=== PATIENT | female | born 1990 | race Hispanic/Latino ===

== ENCOUNTER → 2017-08-24 | Day surgery (SDC) | payer OTHER ==
[~2017-08-24] MED LIST: BELLADONNA/OPIUM 60 MG SUPP PR ONE; CEFTRIAXONE SOD 1 GM VIAL ONE; DEXAMETHASONE SOD PHOS INJ 4 MG/ML VIAL ONE; IOPAMIDOL 610MG/1ML 300 MG/ML VIAL IV ONE; KETOROLAC TROMETHAMINE 30 MG/ML VIAL ONE; LABETALOL HCL100 MG PO; LIDOCAINE HCL 2% LOCAL INJ 5 ML SDV VIAL INJ ONE; MIDAZOLAM HCL 2 MG/2 ML VIAL ONE; MORPHINE SULFATE INJ 10 MG/ML ONE; ONDANSETRON HCL INJ 2 MG/ML VIAL ONE; PROPOFOL IV EMULSION 10 MG/ML 20 ML VIAL ONE; SEVOFLURANE INHAL SOLN 250 ML PEN BTL ONE
--- NOTE | 2017-08-24 09:42 | Diagnostic Imaging Report ---
EXAM: ABDOMEN-1VIEW (KUB) DATE: 08/24/2017 7:55 AM INDICATION: Pre-op lithotripsy COMPARISON: 07/04/2017 CT FINDINGS: Right ureteral stent present. Significant colonic stool. 12 mm calcification overlies inferior right kidney. Left kidney obscured by stool. Irregular 15 mm calculus corresponds with bladder calculus on previous CT. No acute osseous findings. IMPRESSION: As above. Signed by: Dr. Catalino Wiseman MD on 08/24/2017 9:38 AM
--- NOTE | 2017-10-07 08:18 | Operative Report ---
DATE OF PROCEDURE: August 24, 2017 PREOPERATIVE DIAGNOSES 1. Right nephrolithiasis. 2. Foreign body (right indwelling ureteral stent). POSTOPERATIVE DIAGNOSES 1. Right nephrolithiasis. 2. Foreign body (right indwelling ureteral stent). 3. Mild cystocele. PROCEDURES PERFORMED: Note these are all staged procedures as part of multistage, multistep process of managing the patient's urolithiasis. 1. Cystourethroscopy with complicated removal of right indwelling ureteral stent (separate procedure performed with separate scope for the diagnosis of stent). 2. Right ureteropyeloscopy (separate procedure performed to evaluate for any residual urolithiasis and manage them as needed). 3. Interpretation of retrograde ureteropyelography. 4. Interpretation of radiological services for supervision and interpretation of ureteroscopy. 5. Supervision of fluoroscopy. No radiologist present. 6. Pelvic examination under anesthesia. ANESTHESIA: General. COMPLICATIONS: None. CLINICAL SUMMARY: Patrizia Westbrook is a 26-year-old woman who had previous urolithiasis. She also had a , and this delayed management of her stones. Once the patient delivered her baby, we proceeded with stone management. The patient was brought to the operating room today in hopes of rendering her stent-free and stone-free. She is aware of the risks of bleeding, infection, injury to adjacent structures, need for additional procedures and elected to proceed. The patient was given specific instructions in how to handle the interaction of medications with breast milk. OPERATIVE PROCEDURE IN DETAIL: Informed consent was verified. Patrizia Westbrook was properly identified, taken to the operating room, and placed on the cystoscopy table in supine position. Anesthesia was uneventfully begun. The patient was then carefully and gently repositioned in the dorsal lithotomy position with all pressure points well padded. Her genitalia were prepared and draped in the usual sterile fashion. The 22.5-[place] cystourethroscope sheath with obturator in place was atraumatically inserted in the patient's urethra, and the bladder was drained. Panendoscopy of the urinary bladder revealed no suspicious mucosal lesions, no tumors, no stones and no diverticula. A stent was noted to be emerging from the right ureteral orifice. A guidewire was then placed alongside the stent and guided to the level of the patient's kidney. The stent was then grasped, completely removed and discarded. Semirigid ureteroscope was then placed alongside the guidewire and guided into the right ureter. Contrast was injected. No stones were identified. There were no tumors, and no strictures were identified. The flexible ureteroscope was then brought up over the guidewire and guided to the level of the patient's kidney. Careful panendoscopy revealed Brent plaques but no tumors, no stones and no diverticula. No suspicious mucosal lesions were identified. We carefully examined the ureter as we exited. It exhibited no tumors, no stones, no diverticula, no suspicious lesions and no scars. Interpretation of retrograde ureteropyelography: Contrast was instilled in a retrograde fashion on the right-hand side. There were no tumors, no stones and no diverticula. Unobstructed drainage was observed fluoroscopically. The patient's bladder was drained. The cystoscope was withdrawn. Pelvic examination under anesthesia revealed no abnormal palpable pelvic masses. There were no obvious mucosal lesions. There was a grade-1 cystocele. A belladonna and opium suppository was placed. The patient was uneventfully reversed from anesthesia and taken to the recovery room in stable condition. There were no complications to the procedure. The patient tolerated the procedure well. Explicit postoperative instructions were given. We will follow the patient up in the office and, of course, on a long-term basis. Job#: [id number]
== END | disposition home or self-care (01) ==
LOC: OR 07:23
PROVIDERS: ATTEND Urology
DX: N20.0 Calculus of kidney (principal); Z46.6 Encounter for fitting and adjustment of urinary device; N28.89 Other specified disorders of kidney and ureter; N81.10 Cystocele, unspecified
CPT/HCPCS: 52351; 74000; 74420; 81025; 93005; C1758; J0696; J1100; J1885; J2001; J2250; J2270; J2405; Q9967

== ENCOUNTER → 2017-10-10 | Outpatient (CLI) | payer OTHER ==
[~2017-10-10] MED LIST changes: -BELLADONNA/OPIUM 60 MG SUPP PR ONE; -CEFTRIAXONE SOD 1 GM VIAL ONE; -DEXAMETHASONE SOD PHOS INJ 4 MG/ML VIAL ONE; +FUROSEMIDE INJ 10 MG/ML 4 ML VIAL ONE; -IOPAMIDOL 610MG/1ML 300 MG/ML VIAL IV ONE; -KETOROLAC TROMETHAMINE 30 MG/ML VIAL ONE; -LIDOCAINE HCL 2% LOCAL INJ 5 ML SDV VIAL INJ ONE; -MIDAZOLAM HCL 2 MG/2 ML VIAL ONE; -MORPHINE SULFATE INJ 10 MG/ML ONE; -ONDANSETRON HCL INJ 2 MG/ML VIAL ONE; -PROPOFOL IV EMULSION 10 MG/ML 20 ML VIAL ONE; -SEVOFLURANE INHAL SOLN 250 ML PEN BTL ONE
--- NOTE | 2017-10-10 16:22 | Diagnostic Imaging Report ---
PROCEDURE:X-RAY ABDOMEN - KUB COMPARISON:[facility] 08/24/2017, CT 07/04/2017 INDICATIONS:FOLLOW UP ON CALCULUS OF KIDNEY FINDINGS: Interval removal of right double-J ureteral stent. Previous 1.2 cm right lower pole stone is not well visualized. 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 There is a non-obstructed bowel-gas pattern. There are no acute osseous abnormalities. The lung bases are clear. CONCLUSION: Previous 1.2 cm right lower pole stone is currently not well visualized. 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 Dictated by: Rashad Hurst M.D. on 10/10/2017 at 16:31 Electronically approved by: Rashad Hurst M.D. on 10/10/2017 at 16:31
--- NOTE | 2017-10-10 18:45 | Diagnostic Imaging Report ---
Renal Scan with Lasix Washout Clinical information: 26 F with renal calculi and history of UTI's Comparison: Prior renal scan with Lasix 08/13/2016 Technique: Following intravenous administration of 10 mCi of Tc-99m MAG3, dynamic images of the kidneys in the posterior projection were obtained through 40 minutes. Lasix 40 mg was administered intravenously at 10 minutes post injection of the tracer. Report: Left kidney: Perfusion of the left kidney is prompt. The kidney has a normal reniform shape. Extraction of tracer from the blood pool is normal. Clearance of tracer from the renal parenchyma is prompt. The pelvicalyceal system is not dilated. Physiologic pooling of tracer within the pelvicalyceal system is seen. Drainage of tracer from the pelvicalyceal system is prompt and adequate prior to administration of Lasix. No significant stasis of tracer is seen within the left ureter. Right kidney: Perfusion to the right kidney is prompt. The right kidney has a reniform shape with thinning of the lower pole. The right kidney is smaller than the left kidney. Extraction of tracer by the renal parenchyma is normal. Clearance of tracer from the renal parenchyma is prompt. The pelvicalyceal system is mildly dilated. Increased pooling of tracer within the pelvicalyceal system, predominantly the renal pelvis, is seen. No net drainage of tracer from the pelvicalyceal system is seen prior to administration of Lasix. Washout of tracer from the pelvicalyceal system following administration of Lasix is rapid with a T-1/2 of 4 minutes (normal less than 15 minutes). No significant stasis of tracer is seen within the right ureter. Differential renal function: The left kidney contributes 61% of total renal function and the right kidney contributes 39% (normal 43-57%). Impression: 1. The function of the left kidney is generally normal. No hydronephrosis is present. No physiologically significant obstruction of the renal collecting system is present. The appearance and drainage pattern of the left kidney is unchanged compared to the prior study of 08/13/2016. 2. Mild parenchymal loss/scarring is present in the right kidney and this accounts for the decreased differential function of 39%. The function of the right kidney is otherwise generally normal. Mild hydronephrosis is present. No physiologically significant obstruction of the renal collecting system is present. The appearance of the right kidney is unchanged compared to the prior study of 08/13/2016 but the extent of hydronephrosis is greater. The differential function is unchanged, 39% today versus previously 40%. Signed by: Dr. Keely Mccarthy M.D. on 10/10/2017 6:42 PM
== END ==
LOC: NM 14:03
PROVIDERS: ATTEND Urology
DX: N20.0 Calculus of kidney (principal)
CPT/HCPCS: 74000; 78708; 81025; A9562; J1940; 74018